=== PATIENT | male | born 1985 | race Caucasian/White ===

== ENCOUNTER 2022-04-11 04:37 | Day surgery (SDC) | payer OTHER ==
[2022-04-11] VITALS (233 sets, daily range): BP systolic 44–154; BP diastolic 25–102
[~2022-04-11] VITALS: Ht 175.3 cm; Wt 73.0 kg
[2022-04-11 07:48] LABS: BASO% 0.4 % (0-3); EOS% 8.1 % (0-8); HEMATOCRIT 39.4 % (39.0-50.0); HEMOGLOBIN 13.3 g/dl (14.0-18.0); IMMATURE GRANULOCYTES 0.1 % (0.0-5.0); LYMPH% 18.3 % (15-41); MEAN CORPUSCULAR HGB CONC 33.8 g/dL CAL (32.0-36.0); MONO% 6.7 % (2-13); NEUT# 5.06 thou/uL (1.82-7.42); NEUT% 66.4 % (42-76); RED BLOOD COUNT 4.58 mill/uL (4.70-6.10); RED CELL DISTRI WIDTH 12.8 % (11.5-15.5)
[2022-04-11 08:32] LABS: ALBUMIN 4.8 g/dL (3.2-5.0); ALKALINE PHOSPHATASE 86 u/l (38-126); ANION GAP 10 (6-22 (CALC)); BILIRUBIN, TOTAL 0.2 mg/dL (0.0-1.4); BUN 24 mg/dL (9-20); BUN/CREATININE RATIO 34 (12-20 (CALC)); CARBON DIOXIDE 31 mmol/l (22-30); CHLORIDE 103 mmol/l (95-108); CREATININE 0.7 mg/dL (0.7-1.3); GFR FOR AFR.AMER. > 60 ML/MIN (>=60 (CALC)); GFR OTHER RACES > 60 ML/MIN (>=60 (CALC)); POTASSIUM 3.7 mmol/l (3.5-5.1); SGOT/AST 21 u/l (17-59); SODIUM 140 mmol/l (137-146); TOTAL PROTEIN 7.5 g/dL (6.3-8.2)
[2022-04-11] MEDS ORDERED: NALTREXONE50 MG PO (14:10)
[2022-04-11] MEDS ORDERED: CLONIDINE0.1 MG PO (14:11)
[2022-04-11] MEDS ORDERED: KLONOPIN2 MG PO (14:11)
[2022-04-12 03:35] VITALS: BP 105/65
[2022-04-12 04:43] LABS: BASO% 0.1 % (0-3); EOS% 0.1 % (0-8); HEMATOCRIT 37.7 % (39.0-50.0); HEMOGLOBIN 13.5 g/dl (14.0-18.0); IMMATURE GRANULOCYTES 0.2 % (0.0-5.0); LYMPH% 4.4 % (15-41); MEAN CELL VOLUME 82.5 fL CALC (80.0-100.0); MEAN CORPUSCULAR HGB 29.5 pG CALC (26.0-32.0); MEAN CORPUSCULAR HGB CONC 35.8 g/dL CAL (32.0-36.0); MONO% 1.2 % (2-13); NEUT# 13.34 thou/uL (1.82-7.42); RED BLOOD COUNT 4.57 mill/uL (4.70-6.10); RED CELL DISTRI WIDTH 12.6 % (11.5-15.5)
[2022-04-12 05:03] LABS: ALBUMIN 4.2 g/dL (3.2-5.0); ALKALINE PHOSPHATASE 78 u/l (38-126); ANION GAP 10 (6-22 (CALC)); BILIRUBIN, TOTAL 0.2 mg/dL (0.0-1.4); BUN 11 mg/dL (9-20); BUN/CREATININE RATIO 16 (12-20 (CALC)); CHLORIDE 107 mmol/l (95-108); CREATININE 0.7 mg/dL (0.7-1.3); GFR FOR AFR.AMER. > 60 ML/MIN (>=60 (CALC)); GFR OTHER RACES > 60 ML/MIN (>=60 (CALC)); MAGNESIUM 2.3 mg/dL (1.6-2.3); SGOT/AST 20 u/l (17-59); SODIUM 137 mmol/l (137-146); TOTAL PROTEIN 6.9 g/dL (6.3-8.2)
[2022-04-12 05:06] LABS: CARBON DIOXIDE 24 mmol/l (22-30)
[2022-04-12 07:00] VITALS: BP 121/76
[2022-04-12 07:57] VITALS: BP 121/76
== END 2022-04-12 15:55 | disposition home or self-care (01) | DRG 897 ==
LOC: ANR 04:37 → MS2 04:37 → ANR 08:00 → MS2 15:58 → ANR 04-12 15:55
PROVIDERS: ATTEND Anesthesiology
DX: F11.20 Opioid dependence, uncomplicated (principal)
CPT/HCPCS: J2060; J2354; J3475